=== PATIENT | female | born 1980 | race Caucasian/White ===

== ENCOUNTER 2018-02-10 19:33 | Observation (INO) | payer OTHER ==
[~2018-02-10] VITALS: Ht 157.5 cm; Wt 63.5 kg
[2018-02-10] MEDS ORDERED: PNV11TAB PO (20:43)
[2018-02-10 23:08] VITALS: BP 121/76
== END 2018-02-10 21:45 | disposition home or self-care (01) ==
LOC: 4S 19:33
PROVIDERS: ADMIT Obstetrics & Gynecology; ATTEND Obstetrics & Gynecology
DX: O62.9 Abnormality of forces of labor, unspecified (principal); O09.523 Supervision of elderly multigravida, third trimester; Z3A.37 37 weeks gestation of pregnancy
CPT/HCPCS: 59025; G0378

== ENCOUNTER 2018-02-12 15:47 | Inpatient (IN) | payer OTHER ==
[~2018-02-12] VITALS: Ht 160 cm; Wt 62.6 kg
[~2018-02-12 15:47] MED LIST: EPHEDrine SULFATE 50 MG/ML VIAL IM ONE; KETOROLAC TROMETHAMINE 60 MG/2 ML VIAL IM ONE; METOCLOPRAMIDE HCL 5 MG/ML 2 ML VIAL IVP ONE; ONDANSETRON HCL 4 MG/2 ML VIAL IVP ONE; PNV11TAB PO
[2018-02-12 16:14] VITALS: BP 139/91
[2018-02-12] MEDS ORDERED: RINGERS SOLUTION,LACTATED 1,000 ML IV ONE ×2 (16:32→16:45)
[2018-02-12] MEDS ORDERED: CITRIC ACID/SODIUM CITRATE 30 ML SOLUTION UDCUP PO ONE (16:45)
[2018-02-12] MEDS ORDERED: METOCLOPRAMIDE HCL 5 MG/ML 2 ML VIAL IVP ONE (16:45)
[2018-02-12] MEDS ORDERED: FentaNYL CITRATE-PF 100 MCG/2 ML VIAL ONE (17:02)
[2018-02-12] MEDS ORDERED: MORPHINE SULFATE/PF 1 MG/ML 10 ML AMP ONE (17:02)
[2018-02-12] MEDS ORDERED: MIDAZOLAM HCL 2 MG/2 ML VIAL ONE (17:02)
[2018-02-12 17:05] LABS: HEMATOCRIT 37.8 % (36-46); HEMOGLOBIN 12.9 g/dL (12.0-16.0); MEAN CORPUSCULAR HEMOGLOBIN 29.8 pg (26.0-34.0); MEAN CORPUSCULAR HGB CONC 34.2 G/dL (31.0-37.0); MEAN CORPUSCULAR VOLUME 87 fL (80-100); RED BLOOD CELL COUNT(AUTO) 4.34 MIL/uL (4.00-5.20); RED CELL DISTRIBUTION WIDTH 15.1 % (11.5-14.5)
[2018-02-12 17:06] LABS: BASOPHILS % (AUTO) 0.8 % (0.0-2.0); EOSINOPHILS % (AUTO) 0.3 % (1.0-6.0); LYMPHOCYTES # (AUTO) 2.3 K/uL (1.0-4.8); LYMPHOCYTES % (AUTO) 21.7 % (22.0-44.0); MONOCYTES # (AUTO) 0.7 K/uL (0.1-1.0); MONOCYTES % (AUTO) 6.2 % (2.0-9.0); NEUTROPHILS # (AUTO) 7.7 K/uL (1.8-7.7); PLATELET COUNT (AUTO)-OB 214 K/uL (150-450)
[2018-02-12] MEDS ORDERED: GUM MASTIC/STORAX/MSAL/ALCOHOL LIQUID 0.67 ML VIAL TP ONE (17:17)
[2018-02-12 17:19] LABS: ANION GAP 16 mmol/L (8-16); CALCIUM, TOTAL 9.1 mg/dL (8.8-10.5); CARBON DIOXIDE 20 mmol/L (22-29); CHLORIDE 100 mmol/L (98-107); CREATININE 0.62 mg/dL (0.60-1.30); GLOMERULAR FILTR. RATE CALC > 60 mL/min (>60); GLUCOSE,RANDOM 79 mg/dL (70-110); POTASSIUM 3.4 mmol/L (3.5-5.1); SODIUM SERUM 136 mmol/L (136-145); UREA NITROGEN, BLOOD 4 mg/dL (7-18)
[2018-02-12 17:23] LABS: ALANINE AMINOTRANSFERASE 22 U/L (12-78); ALBUMIN 2.8 g/dL (3.4-5.0); ALKALINE PHOSPHATASE 138 U/L (46-116); ASPARTATE AMINOTRANSFERASE 22 U/L (15-37); BILIRUBIN,TOTAL 0.4 mg/dL (0.1-1.0); TOTAL PROTEIN, SERUM 6.9 g/dL (6.4-8.2); URIC ACID 5.5 mg/dL (2.6-7.2)
[2018-02-12] MEDS ORDERED: OxyCODONE HCL/ACETAMINOPHEN 5-325 MG TABLET PO PRN ×3 (17:45→18:15)
[2018-02-12] MEDS ORDERED: NALOXONE HCL 0.4 MG/ML VIAL IVP PRN (17:45)
[2018-02-12] MEDS ORDERED: ONDANSETRON HCL 4 MG/2 ML VIAL IVP PRN (17:45)
[2018-02-12] MEDS ORDERED: MEPERIDINE HCL/PF 25 MG/0.5 ML AMP IVP PRN (17:45)
[2018-02-12] MEDS ORDERED: FentaNYL CITRATE-PF 100 MCG/2 ML VIAL IVP PRN ×2 (17:45)
[2018-02-12] MEDS ORDERED: HYDROmorphone 2 MG/ML SYRINGE IVP PRN (17:45)
[2018-02-12] MEDS ORDERED: DiphenhydrAMINE HCL 50 MG/ML VIAL IVP PRN (17:45)
[2018-02-12] MEDS ORDERED: OXYTOCIN 30 UNITS/LACT RINGERS 500 ML IV ONE (18:01)
[2018-02-12] MEDS ORDERED: LANOLIN 7 GM OINTMENT TP PRN (18:15)
[2018-02-12] MEDS ORDERED: OXYGEN THERAPY IH SCH ×2 (20:00)
[2018-02-13] MEDS: RINGERS SOLUTION,LACTATED 1,000 ML IV SCH ×2 (02:30→11:57)
[2018-02-13 05:51] LABS: BASOPHILS % (AUTO) 0.1 % (0.0-2.0); EOSINOPHILS % (AUTO) 0 % (1.0-6.0); HEMATOCRIT 30.2 % (36-46); HEMOGLOBIN 10.6 g/dL (12.0-16.0); LYMPHOCYTES # (AUTO) 1.5 K/uL (1.0-4.8); LYMPHOCYTES % (AUTO) 8.9 % (22.0-44.0); MEAN CORPUSCULAR HEMOGLOBIN 30.6 pg (26.0-34.0); MEAN CORPUSCULAR HGB CONC 35.2 G/dL (31.0-37.0); MEAN CORPUSCULAR VOLUME 87 fL (80-100); MONOCYTES # (AUTO) 0.9 K/uL (0.1-1.0); MONOCYTES % (AUTO) 5.5 % (2.0-9.0); PLATELET COUNT (AUTO)-OB 177 K/uL (150-450); RED BLOOD CELL COUNT(AUTO) 3.48 MIL/uL (4.00-5.20)
[2018-02-13 06:38] LABS: NEUTROPHILS % (AUTO) 85.5 % (40.0-70.0)
[2018-02-13] MEDS: MAGNESIUM HYDROXIDE SUSPENSION 30 ML UDCUP PO SCH ×2 (09:05→21:00)
[2018-02-13] MEDS: IBUPROFEN 800 MG TABLET PO PRN (16:25)
[2018-02-14] MEDS: IBUPROFEN 800 MG TABLET PO PRN ×4 (01:57→23:31)
[2018-02-14] MEDS ORDERED: PERCT PO (09:06)
[2018-02-14] MEDS ORDERED: IBUP-2071 PO (09:07)
[2018-02-14] MEDS ORDERED: DSS100 PO (09:08)
[2018-02-14] MEDS ORDERED: FERR-89 PO (09:08)
[2018-02-14] MEDS: MAGNESIUM HYDROXIDE SUSPENSION 30 ML UDCUP PO SCH (21:37)
[2018-02-15] MEDS: IBUPROFEN 800 MG TABLET PO PRN (05:41)
== END 2018-02-15 10:45 | disposition home or self-care (01) | DRG 766 ==
LOC: 4S 15:47 → OBSVTOIN 16:43 → 4S 23:29
PROVIDERS: ADMIT Obstetrics & Gynecology; ATTEND Obstetrics & Gynecology
PROC: 10D00Z1 Extraction of Products of Conception, Low, Open Approach (ICD-10-PCS; principal; 2018-02-12)
PROC: 0UB70ZZ Excision of Bilateral Fallopian Tubes, Open Approach (ICD-10-PCS; 2018-02-12)
DX: O34.211 Maternal care for low transverse scar from previous cesarean delivery (principal); Z3A.37 37 weeks gestation of pregnancy; Z37.0 Single live birth; O14.94 Unspecified pre-eclampsia, complicating childbirth; Z30.2 Encounter for sterilization
CPT/HCPCS: 84550; 86850; 86900; 86901; 88302; J0690; J1885; J2250; J2405; J2765; J3010; J3490; J7120